=== PATIENT | female | born 2000 | race Caucasian/White ===

== ENCOUNTER 2022-06-10 06:30 | Observation (INO) ==
[2022-06-10] MEDS ORDERED: ANCEF VIAL 1 GRAM ONE (06:42)
[2022-06-10] MEDS ORDERED: LR 1,000 ML IV 1,000 ML IV ONE ×2 (06:43→08:27)
[2022-06-10] MEDS ORDERED: NS 100 ML IV 100 ML ONE (06:43)
[2022-06-10] MEDS ORDERED: BACTROBAN TOPICAL OINT ONE (07:14)
[2022-06-10] MEDS ORDERED: NS 1,000 ML IV 1,000 ML ONE ×5 (07:15→09:06)
[2022-06-10] MEDS ORDERED: QUELICIN (OR ANECTINE) ONE (07:24)
[2022-06-10] MEDS ORDERED: VERSED ONE (07:24)
[2022-06-10] MEDS ORDERED: ZEMURON 100 MG VIAL ONE (07:24)
[2022-06-10] MEDS ORDERED: FENTANYL VIAL INJ 250 mcg ONE (07:24)
[2022-06-10] MEDS ORDERED: ZOFRAN INJ 4 MG VIAL ONE ×2 (07:24→14:50)
[2022-06-10] MEDS ORDERED: BRIDION ONE (07:25)
[2022-06-10] MEDS ORDERED: DIPRIVAN VIAL 20 ML ONE (07:25)
[2022-06-10 07:28] LABS: SERUM PREGNANCY TEST, QUAL NEGATIVE <10 mIU/mL
[2022-06-10] MEDS ORDERED: SUPRANE ONE (07:42)
[2022-06-10] MEDS ORDERED: TORADOL 30 MG VIAL ONE (08:11)
[2022-06-10] MEDS ORDERED: DILAUDID INJ ONE (08:13)
[2022-06-10] MEDS ORDERED: EPHEDRINE SULFATE INJ ONE (08:19)
[2022-06-10] MEDS ORDERED: BARHEMSYS INJ IVP PRN (09:33)
[2022-06-10] MEDS ORDERED: REGLAN INJ 10 MG VIAL IVP PRN (09:33)
[2022-06-10] MEDS ORDERED: BENADRYL INJ 50 MG VIAL IVP PRN (09:33)
[2022-06-10] MEDS ORDERED: ZOFRAN INJ 4 MG VIAL IVP PRN (09:33)
[2022-06-10] MEDS ORDERED: DILAUDID INJ IVP PRN (09:33)
[2022-06-10] MEDS: D5 1/2 NS 1,000 ML 1,000 ML IV SCH ×2 (10:00→21:51)
[2022-06-10] MEDS ORDERED: STERILE WATER IRRIGATION IR ONE (12:33)
[2022-06-10] MEDS: DILAUDID INJ IVP PRN ×2 (13:10→18:00)
[2022-06-10 13:29] LABS: BASOPHILS % (AUTO) 0.2 % (0.2-1.0); HEMOGLOBIN 11.1 g/dL (12.0-16.0); LYMPHOCYTES # (AUTO) 1.8 X10^3/uL (1.3-2.9); LYMPHOCYTES % (AUTO) 7.9 % (21.0-51.0); MEAN CORPUSCULAR HEMOGLOBIN 27.8 pg (27.0-34.0); MEAN CORPUSCULAR HGB CONC 33.7 g/dL (33.0-35.0); MEAN CORPUSCULAR VOLUME 82.5 fL (80.0-100.0); MEAN PLATELET VOLUME 8.2 fL (7.4-11.0); MONOCYTES % (AUTO) 4.6 % (0.0-13.0); NEUTROPHILS # (AUTO) 19.8 x10^3/uL (2.2-4.8); NEUTROPHILS % (AUTO) 87.3 % (42.0-75.0); RED BLOOD COUNT 3.99 X10^6/uL (3.5-5.4); RED CELL DISTRIBUTION WIDTH 13.6 % (11.6-16.5); WHITE BLOOD COUNT 22.7 X10^3/uL (3.6-10.0)
[2022-06-10 13:47] LABS: ALANINE AMINOTRANSFERASE 44 Units/L (12-78); ALBUMIN 2.7 g/dL (3.4-5.0); ALKALINE PHOSPHATASE 57 Units/L (46-116); ASPARTATE AMINO TRANSFERASE 26 Units/L (15-37); BLOOD UREA NITROGEN 11 mg/dL (7-18); CALCIUM 7.9 mg/dL (8.5-10.1); CARBON DIOXIDE 25.5 mmol/L (21-32); CHLORIDE 106 mmol/L (98-107); COR CA(FOR HYPOALB) 8.9 mg/dL (8.5-10.1); COR NA(FOR HYPERGLY) 140 mmol/L (136-145); CREATININE 0.71 mg/dL (0.55-1.02); SODIUM 139 mmol/L (136-145); eGFR NON BLACK RACES > 60 (>60)
[2022-06-10 14:02] LABS: BAND NEUTROPHILS % 7 % (0-10); PLATELET MORPHOLOGY COMMENT NORMAL (NORMAL)
[2022-06-10] MEDS: ZOFRAN INJ 4 MG VIAL IVP PRN ×2 (14:50→21:50)
[2022-06-11] MEDS: ZOFRAN INJ 4 MG VIAL IVP PRN (02:52)
[2022-06-11] MEDS: D5 1/2 NS 1,000 ML 1,000 ML IV SCH ×2 (02:57→10:43)
[2022-06-11] MEDS: TORADOL TAB PO PRN ×2 (02:57→08:51)
[2022-06-11 06:13] LABS: BASOPHILS % (AUTO) 0.3 % (0.2-1.0); EOSINOPHILS % (AUTO) 0.1 % (0.9-2.9); HEMATOCRIT 25.2 % (36.0-47.0); HEMOGLOBIN 8.8 g/dL (12.0-16.0); LYMPHOCYTES # (AUTO) 2.3 X10^3/uL (1.3-2.9); LYMPHOCYTES % (AUTO) 19.1 % (21.0-51.0); MEAN CORPUSCULAR HEMOGLOBIN 28.2 pg (27.0-34.0); MEAN CORPUSCULAR HGB CONC 34.8 g/dL (33.0-35.0); MEAN CORPUSCULAR VOLUME 81.1 fL (80.0-100.0); MEAN PLATELET VOLUME 8.3 fL (7.4-11.0); MONOCYTES # (AUTO) 0.6 x10^3/uL (0.3-0.8); MONOCYTES % (AUTO) 5.2 % (0.0-13.0); NEUTROPHILS # (AUTO) 9.1 x10^3/uL (2.2-4.8); NEUTROPHILS % (AUTO) 75.3 % (42.0-75.0); RED BLOOD COUNT 3.11 X10^6/uL (3.5-5.4); RED CELL DISTRIBUTION WIDTH 13.8 % (11.6-16.5)
[2022-06-11 06:31] LABS: ALANINE AMINOTRANSFERASE 36 Units/L (12-78); ALBUMIN 2.3 g/dL (3.4-5.0); ALKALINE PHOSPHATASE 47 Units/L (46-116); ASPARTATE AMINO TRANSFERASE 24 Units/L (15-37); BLOOD UREA NITROGEN 7 mg/dL (7-18); CALCIUM 7.4 mg/dL (8.5-10.1); CARBON DIOXIDE 26.1 mmol/L (21-32); CHLORIDE 104 mmol/L (98-107); COR CA(FOR HYPOALB) 8.8 mg/dL (8.5-10.1); COR NA(FOR HYPERGLY) 136 mmol/L (136-145); CREATININE 0.65 mg/dL (0.55-1.02); SODIUM 136 mmol/L (136-145); TOTAL PROTEIN 5.3 g/dL (6.4-8.2); eGFR NON BLACK RACES > 60 (>60)
--- NOTE | 2022-06-11 09:47 | DR.PROGNOT ---
Hospital Progress Notes - Progress Note for Day of: Progress Note Date: 06/11/22 - Chief Complaint Chief Complaint: c/o RT side and RLQ pain . vomited last night . mild drainage in LEXY . post op anemia .. no active bleeding . all LFT are normal . BP and VSs are stable . - Past Medical Family Social History Past Med/Fam/Surg Hx: No changes since H&P Allergies: Allergies No Known Allergies Allergy (Verified 06/10/22 06:57) - Review Of Systems ROS: No change since H&P - Vital Signs Vital Signs: Temperature 98.7 F Pulse Rate [Right Brachial] 88 Pulse Rate 89 Respiratory Rate 16 Blood Pressure [Right Arm] 126/80 Blood Pressure 99/58 O2 Sat by Pulse Oximetry 97 - Physical Exam Oriented: Normal Eyes: Normal Ear: Normal Nose: Normal Throat: Normal Respiratory: Normal Cardiovascular: Normal : Normal GI:Auscultation: Normal GI:Palpation: Normal GI: Tenderness: Diffuse (soft, flat abdomen with diffuse tenderness .. no rebound . BS+) Skin: Normal Musculoskeletal: Normal Psychiatric: Normal Mood Description: Calm Affect: Angry Speech Pattern: Clear, Appropriate - Laboratory and Diagnostics Result Diagrams: 06/11/22 05:40 06/11/22 05:40 Labs: Laboratory WBC 12.0 X10^3/uL (3.6-10.0) H D 06/11/22 05:40 RBC 3.11 X10^6/uL (3.5-5.4) L 06/11/22 05:40 Hgb 8.8 g/dL (12.0-16.0) L D 06/11/22 05:40 Hct 25.2 % (36.0-47.0) L 06/11/22 05:40 MCV 81.1 fL (80.0-100.0) 06/11/22 05:40 MCH 28.2 pg (27.0-34.0) 06/11/22 05:40 MCHC 34.8 g/dL (33.0-35.0) 06/11/22 05:40 RDW 13.8 % (11.6-16.5) 06/11/22 05:40 Plt Count 212 X10^3/uL (150.0-450.0) 06/11/22 05:40 Plt Count Comment Adequate (ADEQUATE) 06/10/22 13:15 MPV 8.3 fL (7.4-11.0) 06/11/22 05:40 Neut % (Auto) 75.3 % (42.0-75.0) H 06/11/22 05:40 Lymph % (Auto) 19.1 % (21.0-51.0) L 06/11/22 05:40 [place] % (Auto) 5.2 % (0.0-13.0) 06/11/22 05:40 Eos % (Auto) 0.1 % (0.9-2.9) L 06/11/22 05:40 Baso % (Auto) 0.3 % (0.2-1.0) 06/11/22 05:40 Neut # (Auto) 9.1 x10^3/uL (2.2-4.8) H 06/11/22 05:40 Lymph # (Auto) 2.3 X10^3/uL (1.3-2.9) 06/11/22 05:40 [place] # (Auto) 0.6 x10^3/uL (0.3-0.8) 06/11/22 05:40 Eos # (Auto) 0.0 x10^3/uL (0.0-0.2) 06/11/22 05:40 Baso # (Auto) 0.0 X10^3/uL (0.0-0.1) 06/11/22 05:40 Absolute Nucleated RBC 0.0 /100WBC 06/11/22 05:40 Total Counted 100 06/10/22 13:15 Neutrophils % (Manual) 78 % (39-76) H 06/10/22 13:15 Band Neutrophils % 7 % (0-10) 06/10/22 13:15 Lymphocytes % (Manual) 12 % (13-43) L 06/10/22 13:15 Monocytes % (Manual) 3 % (4-9) L 06/10/22 13:15 Plt Morphology Comment Normal (NORMAL) 06/10/22 13:15 RBC Morphology Normal (NORMAL) 06/10/22 13:15 Sodium 136 mmol/L (136-145) 06/11/22 05:40 Corrected Sodium 136 mmol/L (136-145) 06/11/22 05:40 Potassium 3.7 mmol/L (3.5-5.1) 06/11/22 05:40 Chloride 104 mmol/L (98-107) 06/11/22 05:40 Carbon Dioxide 26.1 mmol/L (21-32) 06/11/22 05:40 BUN 7 mg/dL (7-18) 06/11/22 05:40 Creatinine 0.65 mg/dL (0.55-1.02) 06/11/22 05:40 Est GFR (MDRD) Af Amer > 60 (>60) 06/11/22 05:40 Est GFR (MDRD) Non-Af > 60 (>60) 06/11/22 05:40 Glucose 120 mg/dL (65-99) H 06/11/22 05:40 Calcium 7.4 mg/dL (8.5-10.1) L 06/11/22 05:40 Corrected Calcium 8.8 mg/dL (8.5-10.1) 06/11/22 05:40 Total Bilirubin 0.20 mg/dL (0.2-1.0) 06/11/22 05:40 AST 24 Units/L (15-37) 06/11/22 05:40 ALT 36 Units/L (12-78) 06/11/22 05:40 Alkaline Phosphatase 47 Units/L (46-116) 06/11/22 05:40 Total Protein 5.3 g/dL (6.4-8.2) L 06/11/22 05:40 Albumin 2.3 g/dL (3.4-5.0) L 06/11/22 05:40 Globulin 3.0 g/dL (2.5-4.5) 06/11/22 05:40 Albumin/Globulin Ratio 0.8 Ratio (1.1-2.1) L 06/11/22 05:40 HCG, Qual Negative <10 mIU/mL 06/10/22 07:00 Tissue Pathology To follow 06/10/22 08:44 - Assessment and Plan 1: post op lap [place] . PO blood loss anemia .. no active bleeding now . to advance diet and possible d/c this PM .
[2022-06-11 12:40] VITALS: BP 144/91
== END 2022-06-11 12:35 | disposition home or self-care (01) ==
LOC: SURG1 06:30 → MED/SURG 06:30
PROVIDERS: ADMIT Surgery; ATTEND Surgery
DX: R10.84 Generalized abdominal pain; K82.8 Other specified diseases of gallbladder; K81.1 Chronic cholecystitis